=== PATIENT | male | born 1960 | race Caucasian/White ===

== ENCOUNTER 2017-06-19 18:49 | Emergency (ER) | payer SELFPAY ==
[~2017-06-19] VITALS: Ht 177.8 cm; Wt 77.3 kg
[2017-06-19 19:08] LABS: GLUCOSE,POINT OF CARE 119 MG/DL (70-110)
[2017-06-19 20:25] VITALS: BP 115/64
== END 2017-06-19 21:02 | disposition home or self-care (01) ==
LOC: EMS 18:53
DX: T40.1X1A Poisoning by heroin, accidental (unintentional), initial encounter (principal); F11.90 Opioid use, unspecified, uncomplicated; F17.210 Nicotine dependence, cigarettes, uncomplicated; Y92.89 Other specified places as the place of occurrence of the external cause
CPT/HCPCS: 82962; 99285